=== PATIENT | male | born 1960 | race Hispanic/Latino ===

== ENCOUNTER 2017-01-11 06:30 | Day surgery (SDC) | payer MEDICARE, OTHER ==
[2017-01-11] MEDS ORDERED: NACL 0.9% 500 ML 500 ML IV SCH (07:00)
[2017-01-11 07:09] LABS: Basophils % (Auto) 0.8 % (0.0-1.8); Eosinophils % (Auto) 2.4 % (0.0-4.3); Hematocrit 42.4 % (35.5-45.6); Hemoglobin 14.2 gm/dl (11.8-15.2); Mean Corpuscular HGB Conc 34 % (32-34); Mean Corpuscular Hemoglobin 32 pg (28-32); Mean Corpuscular Volume 95 fl (84-94); Platelet Count 299 K/mm3 (140-440); Red Blood Count 4.47 M/mm3 (3.65-5.03); Red Cell Distribution Width 14.4 % (13.2-15.2)
[2017-01-11 07:22] LABS: Anion Gap 18 mmol/L; BUN/Creatinine Ratio 18; Blood Urea Nitrogen 11 mg/dL (9-20); Calcium 8.9 mg/dL (8.4-10.2); Carbon Dioxide 23 mmol/L (22-30); Chloride 105.1 mmol/L (98-107); Glucose 130 mg/dL (75-100); Potassium 4.4 mmol/L (3.6-5.0); Sodium 142 mmol/L (137-145)
[2017-01-11 07:23] LABS: INR 0.94 (0.87-1.13)
[2017-01-11] MEDS ORDERED: NITROGLYCERIN SYRINGE 3 ML ONE (08:24)
[2017-01-11] MEDS ORDERED: CALAN ONE (08:24)
[2017-01-11] MEDS ORDERED: XYLOCAINE 2% INFILTRATI ONE (08:24)
[2017-01-11] MEDS ORDERED: HEPARIN/NS 5000 UNIT/500ML(CATH LAB) 1,000 ML IR ONE (08:24)
[2017-01-11] MEDS ORDERED: HEPARIN 10,000 UNITS/10 ML ONE (08:24)
[2017-01-11] MEDS ORDERED: VERSED ONE (08:25)
[2017-01-11] MEDS ORDERED: SUBLIMAZE ONE (08:25)
--- NOTE | 2017-01-11 10:08 | Discharge Summary ---
Short Stay Discharge Plan Activity: advance as tolerated Weight Bearing Status: Partial Weight Bearing Diet: low fat, low cholesterol, low salt, diabetic Wound: keep clean and dry Special Instructions: no heavy lifting (3 days), hold Metformin (48hrs only) Additional Instructions: HOLD METFORMIN FOR 48HRS ONLY Follow up with: HERB BAH MD [Primary Care Provider] - 7 Days RAPHAEL CASTILLO MD [Staff Physician] - 7 Days
[2017-01-11] MEDS ORDERED: NACL 0.9% 1000 ML 1,000 ML IV SCH (11:00)
--- NOTE | 2017-01-11 11:47 | Cardiac Catherization Report ---
REASON FOR PROCEDURE: The patient is a 56-year-old man with a history of coronary artery disease and 3-way coronary artery bypass done in 2006. In anticipation of her right knee surgery, he underwent a thallium stress test which was abnormal, prompting a recommendation for cardiac catheterization. PROCEDURE: 1. Left heart catheterization. 2. Left ventricle angiography. 3. Selective left and right coronary angiography. 4. Selective angiography of the left internal mammary artery graft. 5. Selective angiography of saphenous vein bypass grafts. The patient was prepped and draped in a sterile fashion after informed consent. Left femoral artery was entered using the Seldinger technique followed by placement of a 6-[place] sheath. Selective left and right coronary angiography was performed using #4 right and left Clive catheters. A left internal mammary artery graft was used for left internal mammary artery angiography. Angiography of the circumflex vein graft was done using the right Clive catheter. Angiography of the right coronary bypass graft was done using a right coronary bypass catheter. Finally, pigtail catheter was used for left ventricle angiography. The catheters were removed, sheath removed, and hemostasis achieved using an Angio-Seal device. The patient was returned to the postprocedure unit in stable condition. There were no complications. FINDINGS: HEMODYNAMICS: Left ventricle end diastolic pressure was 25-27, following coronary angiography. Ascending aortic pressure was 147/76. There was no significant pressure gradient on pullback across the aortic valve. CORONARY ANGIOGRAPHY: The left main coronary artery contained mild diffuse atherosclerosis. The left anterior descending artery contained previous placed stents in its proximal and mid segment. This vessel was severely, diffusely diseased, culminating in its total occlusion of its mid segment. The left internal mammary artery graft to the LAD was patent with good anastomosis to the mid LAD beyond the chronic occlusion, demonstrated good anastomosis and good distal runoff. There was mild, 30% stenosis of the mid distal LAD beyond the graft insertion. The circumflex artery also contained the previous stent in its proximal to mid AV groove segment. Beyond the stented segment, the vessel was subtotally occluded. The saphenous vein graft to the circumflex system was patent, with good anastomoses beyond the occlusion and good distal runoff into a large bifurcating obtuse marginal system. There was mild proximal disease of the saphenous vein graft. The right coronary artery was also heavily stented in its proximal, mid, and distal AV groove segments. This vessel was completely occluded in its proximal to mid segment. The saphenous vein graft to the distal right coronary artery was also patent with good anastomosis to the PDA and good distal runoff into a small caliber, but patent distal right coronary system. There was normal left ventricular systolic function, ejection fraction 50-55%. CONCLUSION: 1. Severe 3-vessel coronary artery disease. 2. Patent left internal mammary artery graft to the LAD. 3. Patent saphenous vein graft to the circumflex system. This vein graft has mild nonobstructive proximal disease. 4. Patent saphenous vein graft to the distal right coronary artery. 5. Well preserved left ventricular systolic function, ejection fraction 50-55%. RECOMMENDATION: Risk factor modification and medical therapy. [facility]# [id number] RADHA/VIRGIE
[2017-01-11 15:05] VITALS: BP 151/74
== END 2017-01-11 14:30 | disposition home or self-care (01) ==
LOC: CATHLABREC 06:30
PROVIDERS: ATTEND Internal Medicine Cardiovascular Disease
DX: I25.10 Atherosclerotic heart disease of native coronary artery without angina pectoris (principal); E78.00 Pure hypercholesterolemia, unspecified; I10 Essential (primary) hypertension; I25.2 Old myocardial infarction; F17.210 Nicotine dependence, cigarettes, uncomplicated; I73.9 Peripheral vascular disease, unspecified; Z95.1 Presence of aortocoronary bypass graft; Z95.5 Presence of coronary angioplasty implant and graft; Z82.49 Family history of ischemic heart disease and other diseases of the circulatory system; Z79.82 Long term (current) use of aspirin
CPT/HCPCS: 36415; 80048; 82962; 85025; 85610; 85730; 93005; 93010; 93459; C1760; C1894; J1644; J2250; J3010; J7040; Q9967